=== PATIENT | female | born 1995 | race American Indian/Alaskan Native ===

== ENCOUNTER 2019-03-15 17:58 | Emergency (ER) | payer MEDICAID, OTHER ==
[2019-03-15 18:30] VITALS: BP 148/85
--- NOTE | 2019-03-15 18:48 | Emergency Department Report ---
Blank Doc - Documentation Documentation: 23 y/o [id number] presents to ed c/o of positive home test 5 days ago and star clyde cramping yesterday and had bleeding off and on today. no dizziness or chest pain.
[2019-03-15 19:35] LABS: Basophils % (Auto) 0.4 % (0.0-1.8); Eosinophils # (Auto) 0.1 K/mm3 (0.0-0.4); Hematocrit 37.1 % (30.3-42.9); Hemoglobin 12.5 gm/dl (10.1-14.3); Lymphocytes # (Auto) 2.2 K/mm3 (1.2-5.4); Lymphocytes % (Auto) 22.7 % (13.4-35.0); Mean Corpuscular HGB Conc 34 % (30-34); Mean Corpuscular Volume 84 fl (79-97); Monocytes # (Auto) 0.9 K/mm3 (0.0-0.8); Platelet Count 257 K/mm3 (140-440); Red Blood Count 4.39 M/mm3 (3.65-5.03); Red Cell Distribution Width 15.1 % (13.2-15.2)
[2019-03-15 19:49] LABS: BUN/Creatinine Ratio 28; Blood Urea Nitrogen 14 mg/dL (7-17); Calcium 9.2 mg/dL (8.4-10.2); Hemolysis Index 10
--- NOTE | 2019-03-15 20:39 | Emergency Department Report ---
ED HPI - General Chief complaint: Vaginal Bleeding Stated complaint: BLEEDING/ Time Seen by Provider: 03/15/19 18:46 Source: patient Mode of arrival: Ambulatory Limitations: No Limitations - History of Present Illness Initial comments: 23 y/o [id number] presents to ed c/o of positive home test 5 days ago and started cramping yesterday and had bleeding off and on today. no dizziness or chest pain. MD Complaint: vaginal bleeding Onset/Timin -: week(s) Location: other (vaginal) Radiation: none Severity: mild Severity scale (0 -10): 2 Quality: cramping Consistency: intermittent Improves with: none Worsens with: none Associated symptoms: vaginal bleeding (spotting). denies: vaginal discharge, abdominal pain, dysuria Vaginal bleeding: light :: Yes Number of weeks : 6 OB History - Current : no complications OB History - Previous Pregnancies: miscarriage (at 6 weeks ) Pre-harmeet care: none - Related Data : 2 Para: 0 Ab: 1 (miscarriage 2 yrs ago) Allergies Allergy/AdvReac Type Severity Reaction Status Date / Time No Known Allergies Allergy Unverified 03/15/19 18:28 ED Review of Systems ROS: Stated complaint: BLEEDING/ Other details as noted in HPI Constitutional: denies: chills, fever Eyes: denies: eye pain, eye discharge, vision change ENT: denies: ear pain, throat pain Respiratory: denies: cough, shortness of breath, wheezing Cardiovascular: denies: chest pain, palpitations Endocrine: no symptoms reported Gastrointestinal: denies: abdominal pain, nausea, diarrhea Genitourinary: denies: urgency, dysuria, frequency, hematuria, discharge Musculoskeletal: denies: back pain, joint swelling, arthralgia Skin: denies: rash, lesions Neurological: denies: headache, weakness, paresthesias Psychiatric: denies: anxiety, depression Hematological/Lymphatic: denies: easy bleeding, easy bruising ED Past Medical Hx - Past Medical History Previous Medical History?: No - Surgical History Past Surgical History?: Yes Additional Surgical History: Right ACL - Social History Smoking Status: Never Smoker Substance Use Type: Alcohol ED Physical Exam - General Limitations: No Limitations General appearance: alert, in no apparent distress - Head Head exam: Present: atraumatic, normocephalic - Eye Eye exam: Present: normal appearance, EOMI - ENT ENT exam: Present: mucous membranes moist - Neck Neck exam: Present: normal inspection, full ROM. Absent: tenderness - Respiratory Respiratory exam: Present: normal lung sounds bilaterally. Absent: respiratory distress, wheezes, stridor, chest wall tenderness - Cardiovascular Cardiovascular Exam: Present: regular rate, normal rhythm, normal heart sounds. Absent: systolic murmur, diastolic murmur, rubs, gallop - GI/Abdominal GI/Abdominal exam: Present: soft, normal bowel sounds. Absent: distended, tenderness, guarding, rebound, rigid, bruit, hernia - Rectal Rectal exam: Present: deferred - External exam: Present: other (exam deferred per patient) - Extremities Exam Extremities exam: Present: normal inspection, full ROM, normal capillary refill, pedal edema. Absent: tenderness, joint swelling, calf tenderness - Back Exam Back exam: Present: normal inspection, full ROM. Absent: tenderness, CVA tenderness (R), CVA tenderness (L), muscle spasm, paraspinal tenderness, ve rtebral tenderness, rash noted - Neurological Exam Neurological exam: Present: alert, oriented X3, CN II-XII intact, normal gait, reflexes normal - Psychiatric Psychiatric exam: Present: normal affect, normal mood ED Course Vital Signs 03/15/19 03/15/19 18:29 18:44 Temperature 98.1 F 98.1 F Pulse Rate 105 H 105 H Respiratory 16 16 Rate Blood Pressure 148/85 Blood Pressure 148/85 [Left] O2 Sat by Pulse 100 100 Oximetry ED Medical Decision Making - Lab Data Result diagrams: 03/15/19 19:00 03/15/19 19:00 Labs 03/15/19 03/15/19 03/15/19 19:00 19:00 19:00 WBC 9.7 RBC 4.39 Hgb 12.5 Hct 37.1 MCV 84 MCH 29 MCHC 34 RDW 15.1 Plt Count 257 Lymph % (Auto) 22.7 [place] % (Auto) 9.0 H Eos % (Auto) 1.0 Baso % (Auto) 0.4 Lymph # 2.2 [place] # 0.9 H Eos # 0.1 Baso # 0.0 Seg Neutrophils % 66.9 Seg Neutrophils # 6.5 Sodium 143 Potassium 4.0 Chloride 104.9 Carbon Dioxide 27 Anion Gap 15 BUN 14 Creatinine 0.5 L Estimated GFR > 60 BUN/Creatinine Ratio 28 Glucose 91 Calcium 9.2 HCG, Quant 1353 H Blood Type Ord Rhogam Gestat Weeks 03/15/19 19:00 WBC RBC Hgb Hct MCV MCH MCHC RDW Plt Count Lymph % (Auto) [place] % (Auto) Eos % (Auto) Baso % (Auto) Lymph # [place] # Eos # Baso # Seg Neutrophils % Seg Neutrophils # Sodium Potassium Chloride Carbon Dioxide Anion Gap BUN Creatinine Estimated GFR BUN/Creatinine Ratio Glucose Calcium HCG, Quant Blood Type A POSITIVE Ord Rhogam Gestat Weeks Rh pos - Radiology Data Radiology results: report reviewed, image reviewed US: no viable gestation seen, - Medical Decision Making US: no viable gestations seen hc, there is no vaginal bleeding noted at this time, blood type : Opos, , CBC is stable, UA: - pt has eloped prior to completion, of evaluation and treatment, pt paged overhead x 3 DNA, disposition is undetermined at this time. Critical care attestation.: If time is entered above; I have spent that time in minutes in the direct care of this critically ill patient, excluding procedure time. ED Disposition Clinical Impression: Threatened miscarriage in early Disposition: Z-07 ELOPED Is pt being admited?: No Does the pt Need Aspirin: No Condition: Undetermined Instructions: Threatened Miscarriage (ED) Referrals: JOSÉ MACHADO MD [Staff Physician] - 3-5 Days Forms: Work/School Release Form(ED) Time of Disposition: 22:44
--- NOTE | 2019-03-15 21:58 | Ultrasound Report ---
PROCEDURE: US OB TRANSVAGINAL TECHNIQUE: HISTORY: bleed COMPARISONS: FINDINGS: Real-time ultrasound of the pelvis was performed by transabdominal and endovaginal techniqu e. These images demonstrate that the uterus measures 6.5 x 3.5 x 5.1 cm. The endometrial stripe is michele l and 0.25 cm. No intrauterine gestation is seen. There is a small hypoechoic structure in the endoce rvical canal which could represent a gestational sac being passed. Alternatively, this could represen t fluid in the canal. The right ovary measures 2.9 x 1.6 x 1.6 cm and the left ovary 2.2 x 1.6 x 1.7 cm. There is no adnexa l mass or evidence of ovarian torsion. IMPRESSION: No viable intrauterine gestation is seen Possible gestational sac in canal lower uterine segment which could represent [id number] Normal ovaries This document is electronically signed by Randy Daily MD., Mar 15 2019 09:56:42 PM ET
--- NOTE | 2019-03-15 21:58 | Ultrasound Report ---
PROCEDURE: US OB <= 14 WEEKS FETUS HISTORY: Vaginal bleeding FINDINGS: Real-time ultrasound of the pelvis was performed by transabdominal and endovaginal techniqu e. These images demonstrate that the uterus measures 6.5 x 3.5 x 5.1 cm. The endometrial stripe is michele l and 0.25 cm. No intrauterine gestation is seen. There is a small hypoechoic structure in the endoce rvical canal which could represent a gestational sac being passed. Alternatively, this could represen t fluid in the canal. The right ovary measures 2.9 x 1.6 x 1.6 cm and the left ovary 2.2 x 1.6 x 1.7 cm. There is no adnexa l mass or evidence of ovarian torsion. IMPRESSION: No viable intrauterine gestation is seen Possible gestational sac in canal lower uterine segment which could represent [id number] ess Normal ovaries This document is electronically signed by Randy Daily MD., Mar 15 2019 09:56:28 PM ET
[2019-03-16 00:26] LABS: Bacteria,Urine 2+ /HPF (Negative); Bilirubin,Urine NEG (Negative); Blood,Urine MOD (Negative); Color,Urine Yellow (Yellow); Mucus,Urine 1+ /HPF; Protein,Urine <15 mg/dL mg/dL (Negative)
== END 2019-03-15 22:00 | disposition left against medical advice (07) ==
LOC: ED 17:58
DX: O20.0 Threatened abortion (principal); Z3A.01 Less than 8 weeks gestation of pregnancy
CPT/HCPCS: 36415; 76801; 76817; 80048; 81001; 84702; 85025; 86900; 86901; 99283